=== PATIENT | male | born 1970 | race Caucasian/White ===

== ENCOUNTER 2025-11-03 11:17 | Emergency (ER) | payer OTHER, SELFPAY ==
[2025-11-03 11:30] VITALS: BP 185/104; PULSE 72; RESP 16; TEMP 36.6; O2SAT 98; BMI 26.9
--- NOTE | 2025-11-03 11:30 | ED_ITS ---
HPI - General Adult General Chief complaint: Fall Stated complaint: Laceration to Lt hand Time Seen by Provider: 11/03/25 11:24 History of Present Illness HPI narrative: 54-year-old gentleman with a history of chronic kidney disease was hiking today landed on an outstretched left hand has a laceration to the thenar eminence tenderness over the wrist and pain with fully extending the left elbow. There were no other injuries Review of Systems Review of Systems Narrative: Pertinent positive and negative findings as per HPI Exam Narrative Exam Narrative: General: Alert appropriate in no acute distress Respiratory: Able to speak in full sentences, no obvious respiratory distress Skin: No obvious rashes, warm and dry Neurologic: Grossly intact no obvious asymmetries or abnormalities Psych: appropriate insight and affect, cooperative Extremity: 4 cm curvilinear simple laceration to the left thenar eminence, some mild tenderness into the snuffbox and through the carpal bones and pain with extending his elbow can not quite extend it to 180?. No obvious bruising or swelling at the wrist or elbow Initial Vital Signs Initial Vital Signs: Vital Signs Temperature 97.8 F 11/03/25 11:30 Pulse Rate 72 11/03/25 11:30 Respiratory Rate 16 11/03/25 11:30 Blood Pressure 185/104 H 11/03/25 11:30 Pulse Oximetry 98 11/03/25 11:30 Oxygen Delivery Method Room Air 11/03/25 11:30 Course Orders Ordered: ED Orders 11/03/25 11:34 XR elbow LT min 3V Stat XR wrist LT min 3V Stat Discontinued Medications Acetaminophen (Acetaminophen 325 Mg Tablet) 975 mg PO NOW ONE Stop: 11/03/25 11:35 Vital Signs Vital signs: Vital Signs - 8 hr 11/03/25 11:30 Temperature 97.8 F Pulse Rate 72 Respiratory Rate 16 Blood Pressure 185/104 H Pulse Oximetry 98 Oxygen Delivery Method Room Air Medical Decision Making Imaging Data Xray elbow: Radiologist's Impression: PROCEDURE: XR ELBOW LT MIN 3V INDICATIONS: fall, cant fully extend TECHNIQUE: 3 views of the elbow were acquired. COMPARISON: None. FINDINGS: Bones: Cortical irregularity of the coronoid process seen on lateral view. No suspicious bony lesions. Soft tissues: There is an elbow joint effusion. No suspicious soft tissue calcifications. IMPRESSION: Elbow joint effusion with cortical irregularity of the coronoid process seen on lateral view suspicious for fracture. Approved by: Jo Mckeon M.D.,Ph.D. on 11/03/2025 at 12:23 MDM Narrative Medical decision making narrative: 54-year-old gentleman who fell on an outstretched left hand laceration to the palmar surface and wrist and elbow tenderness. Wrist x-ray is unremarkable Question of coronoid process fracture with concern for a joint effusion possible fracture. Treatment: He is placed in a long-arm posterior splint. He is more comfortable with the immobilization. He is neurovascularly intact pre and post placement. Sutures are placed in the hand and we will need to be removed on or about November 11 Findings reviewed with the patient. He does not live locally and will follow up with orthopedic surgeon closer to his home in [place]. He felt that Tylenol would be adequate for pain and declined any additional pain medication. There was no indication for additional imaging and he is safe for discharge Discharge Plan Departure Patient Disposition: Home Clinical Impression: Laceration Left wrist sprain Qualifiers: Encounter type: initial encounter Wrist sprain location: unspecified location Qualified Code(s): S63.502A - Unspecified sprain of left wrist, initial encounter Fracture of elbow Qualifiers: Encounter type: initial encounter Fracture type: closed Laterality: left Qualified Code(s): S42.402A - Unspecified fracture of lower end of left humerus, initial encounter for closed fracture Activity Restrictions/Additional Instructions: Thank you for coming in today, I am sorry this fall interrupted your beautiful morning hike Fortunately, I am not seeing a wrist fracture however I am concerned there may be a small elbow fracture. I have placed you in a splint. You will need to follow up with Orthopedic doctors next week. They voluntary repeat x-rays for more definitive diagnoses. When you call please let them know that you are in the emergency department on , you have fall there was a concern for an elbow fracture you currently have a splint and you need to be seen for further evaluation With the stitches that were placed in your palm, I would recommend keeping them covered and having the stitches out on or about November 11. Using antibiotic ointment under the Band-Aid can help. If you notice any indication of infection, redness, drainage increasing pain, you do need to return to the emergency department If you 5 Referrals: Avinash Elena MD [Primary Care Provider, Family Practice] Stand Alone Forms: Patient Portal/API
--- NOTE | 2025-11-03 11:34 | DI.RAD.S_ITS ---
PROCEDURE: XR WRIST LT MIN 3V INDICATIONS: fall TECHNIQUE: 4 views of the wrist were acquired. COMPARISON: None. FINDINGS: Bones: No fractures or dislocations. No suspicious bony lesions. Soft tissues: No suspicious soft tissue calcifications. IMPRESSION: No acute bony abnormality. Approved by: Jo Mckeon M.D.,Ph.D. on 11/03/2025 at 13:15
--- NOTE | 2025-11-03 11:34 | DI.RAD.S_ITS ---
PROCEDURE: XR ELBOW LT MIN 3V INDICATIONS: fall, cant fully extend TECHNIQUE: 3 views of the elbow were acquired. COMPARISON: None. FINDINGS: Bones: Cortical irregularity of the coronoid process seen on lateral view. No suspicious bony lesions. Soft tissues: There is an elbow joint effusion. No suspicious soft tissue calcifications. IMPRESSION: Elbow joint effusion with cortical irregularity of the coronoid process seen on lateral view suspicious for fracture. Approved by: Jo Mckeon M.D.,Ph.D. on 11/03/2025 at 12:23
[2025-11-03] MEDS: ACETAMINOPHEN 325 MG TABLET 975 MG PO (12:34)
== END 2025-11-03 14:21 | disposition home or self-care (01) ==
PROVIDERS: Emergency Provider Emergency Medicine; PCP Family Medicine
DX: S42.402A Unspecified fracture of lower end of left humerus, initial encounter for closed fracture (principal); S61.512A Laceration without foreign body of left wrist, initial encounter; S63.502A Unspecified sprain of left wrist, initial encounter; Y93.01 Activity, walking, marching and hiking
CPT/HCPCS: 12002; 73080; 73110; 99283